=== PATIENT | female | born 1980 | race Caucasian/White ===

== ENCOUNTER → 2016-09-03 | Outpatient (CLI) | payer BC | LOC: BMCIMAGING 09:40 | PROVIDERS: ATTEND Registered Nurse General Practice | DX: M54.2 Cervicalgia (principal); R20.2 Paresthesia of skin; M50.30 Other cervical disc degeneration, unspecified cervical region ==

== ENCOUNTER → 2017-05-15 | Outpatient (CLI) | payer BC, OTHER | LOC: BMCIMAGING 09:21 | PROVIDERS: ATTEND Family Medicine | DX: S92.502A Displaced unspecified fracture of left lesser toe(s), initial encounter for closed fracture (principal) ==